=== PATIENT | female | born 1975 | race Caucasian/White ===

== ENCOUNTER → 2016-10-06 | Outpatient (CLI) | payer OTHER ==
[~2016-10-06] MED LIST: BUDEPRION XL150 MG PO; LISINOPRIL/HCTZ1 TAB PO; METFORMIN500 MG PO; METRONIDAZOLE500 MG PO; RANITIDINE150 MG PO; SYNTHROID,LEVO25 MCG PO
[2016-10-06 15:49] LABS: VITAMIN D, 25-HYDROXY 7.3 ng/mL (30-100)
[2016-10-06 15:50] LABS: PTH INTACT 20.6 pg/mL (14.0-72.0)
== END ==
LOC: LAB 14:29
PROVIDERS: Nurse Practitioner Family
DX: E83.51 Hypocalcemia (principal)

== ENCOUNTER → 2020-05-19 | Outpatient (CLI) | payer BC | END | disposition home or self-care (01) | LOC: COVID19 09:12 | PROVIDERS: ATTEND Nurse Practitioner Family | DX: Z20.828 Contact with and (suspected) exposure to other viral communicable diseases (principal); E11.3399 Type 2 diabetes mellitus with moderate nonproliferative diabetic retinopathy without macular edema, unspecified eye; I10 Essential (primary) hypertension; E03.9 Hypothyroidism, unspecified; E55.9 Vitamin D deficiency, unspecified; H60.90 Unspecified otitis externa, unspecified ear ==

== ENCOUNTER → 2020-08-16 | Outpatient (CLI) | payer BC | END | disposition home or self-care (01) | LOC: LAB 13:31 | PROVIDERS: ATTEND Nurse Practitioner Family | DX: E78.5 Hyperlipidemia, unspecified (principal) ==

== ENCOUNTER 2020-10-15 09:28 | Emergency (ER) | payer BC ==
[~2020-10-15] VITALS: Ht 152.4 cm; Wt 127.0 kg
[2020-10-15 10:01] LABS: BASO % 0.2 % (0.0-1.0); EOS # 0.1 10*3/uL (0.0-0.4); EOS % 0.9 % (1.0-4.0); HEMATOCRIT 39.3 % (37.0-47.0); LYMPH # 1.6 10*3/uL (1.3-4.4); LYMPH % 12.3 % (27.0-41.0); MEAN CELL VOLUME 89.7 fl (81.0-99.0); MEAN CORPUSCULAR HGB 30.4 pg (27.0-31.0); MEAN CORPUSCULAR HGB CONC 33.8 g/dl (33.0-37.0); MONO # 0.6 10*3/uL (0.1-1.0); NEUT # 10.4 10*3/uL (2.3-7.9); NEUT % 81.4 % (47.0-73.0); PLATELET COUNT AUTOMATED 263 10*3/uL (130-400); RED BLOOD COUNT 4.38 10*6/uL (4.10-5.10); RED CELL DISTRI WIDTH 13.2 % (0-14.5); WHITE BLOOD COUNT 12.8 10*3/uL (4.8-10.8)
[2020-10-15 11:02] LABS: BUN 13 mg/dl (7-24); CHLORIDE 103 mmol/L (98-107); CREATININE 0.79 mg/dL (0.55-1.02); POTASSIUM 3.5 mmol/L (3.5-5.1); SODIUM 138 mmol/L (136-145)
[2020-10-15 11:03] LABS: ALBUMIN 3.4 gm/dl (3.1-4.5); ALKALINE PHOSPHATASE 67 U/L (45-117); SGOT/AST 9 IU/L (3-35); SGPT/ALT 18 U/L (12-78); TOTAL PROTEIN 7.5 gm/dL (6.4-8.2)
[2020-10-15 11:04] LABS: BETA-HCG, QUANT < 1.0 mIU/mL (1-3); LIPASE 57 U/L (73-393)
[2020-10-15] MEDS ORDERED: Phenergan25 MG PO (14:49)
== END 2020-10-15 14:53 | disposition home or self-care (01) ==
LOC: ED 09:28
PROVIDERS: Family Medicine
DX: A08.4 Viral intestinal infection, unspecified (principal); Z79.899 Other long term (current) drug therapy; Z79.84 Long term (current) use of oral hypoglycemic drugs

== ENCOUNTER → 2020-11-25 | Outpatient (CLI) | payer BC ==
[~2020-11-25] MED LIST changes: +Phenergan25 MG PO
== END | disposition home or self-care (01) ==
LOC: RAD 10:49
PROVIDERS: ATTEND Nurse Practitioner Family
DX: M17.11 Unilateral primary osteoarthritis, right knee (principal); M25.761 Osteophyte, right knee; M25.861 Other specified joint disorders, right knee

== ENCOUNTER → 2020-12-13 | Outpatient (CLI) | payer BC | END | disposition home or self-care (01) | LOC: RAD 10:26 | PROVIDERS: ATTEND Orthopaedic Surgery | DX: M17.0 Bilateral primary osteoarthritis of knee (principal); M25.862 Other specified joint disorders, left knee; M25.861 Other specified joint disorders, right knee; M25.761 Osteophyte, right knee; M25.762 Osteophyte, left knee ==

== ENCOUNTER → 2021-02-01 | Outpatient (CLI) | payer BC | END | disposition home or self-care (01) | LOC: COVID19 17:14 | PROVIDERS: ATTEND Internal Medicine | DX: Z11.52 Encounter for screening for COVID-19 (principal) ==

== ENCOUNTER → 2021-02-21 | Outpatient (CLI) | payer BC | END | disposition home or self-care (01) | LOC: RAD 11:05 | PROVIDERS: ATTEND Nurse Practitioner Family | DX: R05.9 Cough, unspecified (principal); R06.2 Wheezing ==